=== PATIENT | male | born 2000 | race Caucasian/White ===

== ENCOUNTER 2020-06-09 04:59 | Emergency (ER) | payer BC ==
[~2020-06-09] VITALS: Ht 180.3 cm; Wt 104.5 kg
[2020-06-09] MEDS ORDERED: DOXYCYCLINE 10100 MG PO (06:01)
[2020-06-09] MEDS ORDERED: PREDNISONE20 MG PO (06:01)
[2020-06-09 06:10] VITALS: BP 124/86; PULSE 76; TEMP 99.3
== END 2020-06-09 06:10 | disposition home or self-care (01) ==
LOC: COL.ER 04:59
DX: R05 Cough (principal); R50.9 Fever, unspecified; R07.81 Pleurodynia; Z20.822 Contact with and (suspected) exposure to COVID-19; Z86.16 Personal history of COVID-19
CPT/HCPCS: J7512